=== PATIENT | male | born 1945 ===

== ENCOUNTER 2020-06-08 05:45 | Observation (INO) ==
[2020-06-08] MEDS ORDERED: Levalbuterol 0.63MG/3ML NEB UNIT OF USE INH ONE ×2 (06:00→06:09)
[2020-06-08] MEDS ORDERED: Famotidine IV 10 MG/ML 2 ml VIAL (20 mg) IV ONE (06:00)
[2020-06-08] MEDS ORDERED: Buffered Lidocaine 1% SYRIN 1 ml INTRADERM ONE (06:00)
[2020-06-08] MEDS ORDERED: NS 0.9% 1000 ml BAG 1,000 ML IV SCH (06:00)
[2020-06-08] MEDS ORDERED: Famotidine IV 10 MG/ML 2 ml VIAL (20 mg) ONE (06:09)
[2020-06-08] MEDS ORDERED: ceFAZolin 2 GM PREMIX 2 GM/50 ML BAG ONE (06:09)
[2020-06-08] MEDS ORDERED: Propofol 10 MG/ML 20 ML BTL ONE ×2 (06:54→08:08)
[2020-06-08] MEDS ORDERED: Lidocaine 2% PF 5 ML VIAL ONE (06:54)
[2020-06-08] MEDS ORDERED: Rocuronium 50 mg VIAL 10 mg/ml 5 ml VIAL (50 mg) ONE (06:59)
[2020-06-08] MEDS ORDERED: Midazolam 2 mg/2 ml VIAL 1 mg/ml 2 ml VIAL (2 mg) ONE (07:03)
[2020-06-08] MEDS ORDERED: fentaNYL 250 mcg/5 ml 50 MCG/ML 5 ml VIAL (250 MCG) ONE (07:03)
[2020-06-08] MEDS ORDERED: cefTRIAXone 2 GM ADDV.VIAL ONE (07:42)
[2020-06-08] MEDS ORDERED: Phenylephrine 40 mcg/mL 10mL (400mcg) SYRINGE ONE (08:08)
[2020-06-08] MEDS ORDERED: EPHEDrine (Pressors) 50 MG/ML VIAL ONE (08:13)
[2020-06-08] MEDS ORDERED: Ondansetron 4 mg VIAL 2 MG/ML 2 ml VIAL ONE (08:13)
[2020-06-08] MEDS ORDERED: Naloxone 0.4 mg VIAL 0.4 mg/ml 1 ml VIAL IV PRN (09:35)
[2020-06-08] MEDS ORDERED: fentaNYL 100 mcg/2 ml 50 MCG/ML VIAL IV PRN (09:35)
[2020-06-08] MEDS ORDERED: Ondansetron 4 mg VIAL 2 MG/ML 2 ml VIAL IV PRN (09:35)
[2020-06-08] MEDS ORDERED: oxyCODONE/Acetamin 5/325 mg TAB PO PRN (11:03)
[2020-06-08] MEDS ORDERED: Lidocaine 2% JELLY 6 ML TOPICAL PRN (11:04)
[2020-06-08] MEDS ORDERED: Albuterol HFA INHALER 8 gm MDI INH PRN (11:05)
[2020-06-08] MEDS: NS 0.9% 1000 ml BAG 1,000 ML IV SCH ×2 (11:15→16:53)
[2020-06-08] MEDS: SPIRIVA Respimat (tiotropium) 2.5 mcg/inh Inhaler INH SCH (16:11)
[2020-06-08] MEDS ORDERED: Mometasone 220 MCG MDI INH SCH (18:00)
[2020-06-09] MEDS: NS 0.9% 1000 ml BAG 1,000 ML IV SCH ×2 (01:23→09:02)
[2020-06-09] MEDS: SPIRIVA Respimat (tiotropium) 2.5 mcg/inh Inhaler INH SCH (07:31)
[2020-06-09 07:55] VITALS: BP 137/63
== END 2020-06-09 11:49 | disposition home or self-care (01) ==
LOC: SSU 05:45 → OR 05:45 → SSU 10:56
PROVIDERS: ADMIT Urology; ATTEND Urology